=== PATIENT | female | born 1990 | race Asian ===

== ENCOUNTER 2023-08-22 19:01 | Inpatient (IN) | payer OTHER, SELFPAY ==
[2023-08-22 19:15] VITALS: BMI 32.8
[2023-08-22 19:17] VITALS: BP 106/78
[2023-08-22 19:27] LABS: % Basophils 0.2 % (0-2); % Eosinophils 0.6 % (0-6); % Lymphocytes 15.5 % (20.5-51.1); % Monocytes 4.7 % (1.7-9.3); Absolute Eosinophils 0.1 10^3/uL (0-0.7); Absolute Immature Granulocytes 0.1 10^3/uL (0-0.05); Absolute Lymphocytes 1.9 10^3/uL (1.2-3.4); Absolute Monocytes 0.6 10^3/uL (0.1-0.6); Absolute Neutrophils 9.5 10^3/uL (1.4-6.5); Hematocrit 38.6 % (37.0-47.0); Hemoglobin 13.4 g/dL (12.0-16.0); Mean Corp Hgb Conc. 34.7 g/dL (33.0-37.0); Mean Corpuscular Hgb 32.1 pg (27.0-31.0); Mean Corpuscular Volume 92.6 fL (81.0-99.0); Mean Platelet Volume 9.4 fL (7.4-10.4); Nucleated Red Blood Cells % 0 %; Platelet Count 276 10^3/uL (130-400); Red Blood Cell Count 4.17 10^6/uL (4.20-5.40); Red Cell Dist. Width 13.5 % (11.5-14.5); White Blood Cell Count 12.2 10^3/uL (4.8-10.8)
[2023-08-22] MEDS: CYTOTEC 25 MICROGRAM VAG (20:38)
[2023-08-23] MEDS: CYTOTEC 50 MICROGRAM PO (00:54)
[2023-08-23] MEDS: SUBLIMAZE 100 MCG EPIDURAL (06:03)
[2023-08-23] MEDS: CYTOTEC PO ×5 (06:03→20:34)
[2023-08-23] MEDS: FENTANYL/BUPIVACAINE 100 EPIDURAL ×2 (06:04→13:39)
[2023-08-23] MEDS: LR 1000 IV ×2 (07:00→14:32)
[2023-08-23] MEDS: ZYRTEC PO (13:38)
[2023-08-23] MEDS: PRENATAL PLUS PO (13:38)
[2023-08-23] MEDS: PITOCIN 30 UNITS/NSS 500 ML IV ×2 (13:39→20:22)
[2023-08-23] MEDS: XYLOCAINE-MPF 1% VIAL 10 ML INFIL (20:32)
[2023-08-23] MEDS: HYDROCORTISONE 2.5% OINTMENT 1 APPLIC TOPICAL (23:35)
[2023-08-23] MEDS: MOTRIN 600 MG PO (23:45)
[2023-08-24] MEDS: TYLENOL 650 MG PO ×4 (00:16→22:04)
[2023-08-24 04:53] LABS: Hematocrit 34.1 % (37.0-47.0); Hemoglobin 11.9 g/dL (12.0-16.0)
[2023-08-24] MEDS: MOTRIN 600 MG PO ×3 (06:12→22:04)
[2023-08-24] MEDS: SENOKOT-S 1 TABLET PO (09:02)
[2023-08-24] MEDS: PRENATAL PLUS 1 TABLET PO (09:02)
[2023-08-24] MEDS: ZYRTEC 10 MG PO (09:04)
[2023-08-24] MEDS: HYDROCORTISONE 2.5% OINTMENT 1 APPLIC TOPICAL (22:06)
[2023-08-25] MEDS: TYLENOL 650 MG PO ×2 (02:29→06:32)
[2023-08-25] MEDS: MOTRIN 600 MG PO (05:19)
[2023-08-25] MEDS: ZYRTEC 10 MG PO (07:52)
[2023-08-25] MEDS: PRENATAL PLUS 1 TABLET PO (07:52)
[2023-08-25] MEDS: SENOKOT-S 1 TABLET PO (07:52)
[2023-08-27 12:39] LABS: Syphilis/T. pallidum Ab Reflex Negative (Negative)
== END 2023-08-25 11:58 | disposition home or self-care (01) | DRG 807 ==
LOC: LDRP 19:01
PROVIDERS: Obstetrics & Gynecology; ADMITTING PHYSICIAN Obstetrics & Gynecology; FAMILY PHYSICIAN Internal Medicine
PROC: 3E0P7VZ Introduction of Hormone into Female Reproductive, Via Natural or Artificial Opening (ICD-10-PCS; 2023-08-22)
PROC: 3E033VJ Introduction of Other Hormone into Peripheral Vein, Percutaneous Approach (ICD-10-PCS; 2023-08-23)
PROC: 10E0XZZ Delivery of Products of Conception, External Approach (ICD-10-PCS; 2023-08-23)
PROC: 0UQMXZZ Repair Vulva, External Approach (ICD-10-PCS; 2023-08-23)
DX: O48.0 Post-term pregnancy (principal); Z37.0 Single live birth; Z3A.41 41 weeks gestation of pregnancy; O70.0 First degree perineal laceration during delivery; O32.6XX0 Maternal care for compound presentation, not applicable or unspecified
CPT/HCPCS: 36415; 85014; 85018; 85025; 86780; 86850; 86900; 86901